=== PATIENT | female | born 1960 | race Caucasian/White ===

== ENCOUNTER → 2020-04-27 | Outpatient (CLI) | payer OTHER | LOC: MRI 10:40 | PROVIDERS: ATTEND Family Medicine | DX: I67.89 Other cerebrovascular disease (principal); R42 Dizziness and giddiness; R90.82 White matter disease, unspecified; G93.9 Disorder of brain, unspecified ==

== ENCOUNTER 2021-09-17 12:35 | Emergency (ER) | payer OTHER ==
[~2021-09-17] VITALS: Ht 165.1 cm; Wt 74.8 kg
[2021-09-17 13:09] VITALS: BP 144/91
[2021-09-17] MEDS ORDERED: METOPROLOL SUCC50 MG PO (13:12)
== END 2021-09-17 13:30 | disposition home or self-care (01) ==
LOC: ER 12:35
PROVIDERS: Emergency Medicine
DX: R51.9 Headache, unspecified (principal); Z20.822 Contact with and (suspected) exposure to COVID-19; I10 Essential (primary) hypertension; Z79.899 Other long term (current) drug therapy